=== PATIENT | female | born 1985 | race Caucasian/White ===

== ENCOUNTER 2018-07-01 20:08 | Emergency (ER) | payer MEDICAID ==
[~2018-07-01] VITALS: Ht 167.6 cm; Wt 91.2 kg
[2018-07-01 20:26] VITALS: Ht 167.6 cm; Wt 91.2 kg
[2018-07-01 21:05] LABS: UA SPECIFIC GRAVITY 1.015 (1.005-1.035); microscopic required? YES; urine erythrocyte NEGATIVE (NEGATIVE)
[2018-07-01 22:48] VITALS: BP 145/71
== END 2018-07-01 22:48 | disposition home or self-care (01) ==
LOC: ED 20:08
PROVIDERS: Emergency Medicine
DX: R10.2 Pelvic and perineal pain (principal); R10.30 Lower abdominal pain, unspecified; R35.0 Frequency of micturition; R30.0 Dysuria; N89.8 Other specified noninflammatory disorders of vagina
CPT/HCPCS: 87491; 87591

== ENCOUNTER 2020-03-04 21:20 | Emergency (ER) | payer MEDICAID ==
[~2020-03-04] VITALS: Ht 167.6 cm; Wt 86.2 kg
[2020-03-04 21:28] VITALS: Ht 167.6 cm; Wt 86.2 kg
[2020-03-04 22:09] LABS: BASOPHIL % 0.4 % (0-2); PLATELET COUNT 275 x10^3mcL (130-400); RED CELL DISTRIBUTION WIDTH 14.3 % (11.5-14.5)
[2020-03-04 22:16] LABS: CALCIUM 8.6 mg/dL (8.5-10.1); CHLORIDE SERUM 107 mmol/L (98-107); CREATININE SERUM 0.8 mg/dL (0.6-1.0); GFR1 > 60 mL/min; GLUCOSE SERUM 98 mg/dL (74-106); POTASSIUM SERUM 3.8 mmol/L (3.5-5.1); SODIUM SERUM 141 mmol/L (136-145)
[2020-03-04 22:20] LABS: ALBUMIN 4.3 g/dL (3.4-5.0); ALKALINE PHOSPHATASE 85 U/L (46-116); ALT/SGPT 13 U/L (14-59); AST/SGOT 8 U/L (15-37); BILIRUBIN TOTAL 0.5 mg/dL (0.20-1.00); LIPASE 76 IU/L (73-393); TOTAL PROTEIN, SERUM 7.5 g/dL (6.4-8.2)
[2020-03-05 02:23] LABS: UA SPECIFIC GRAVITY 1.025 (1.005-1.035); microscopic required? YES; urine erythrocyte 3+ (NEGATIVE)
[2020-03-05 03:27] VITALS: BP 122/76
== END 2020-03-05 02:50 | disposition home or self-care (01) ==
LOC: ED 21:20
PROVIDERS: Emergency Medicine
DX: R10.2 Pelvic and perineal pain (principal); R30.9 Painful micturition, unspecified; R10.32 Left lower quadrant pain; R10.31 Right lower quadrant pain
CPT/HCPCS: 87491; 87591; J0696